=== PATIENT | female | born 1980 | race Caucasian/White ===

== ENCOUNTER → 2020-02-20 11:18 | Outpatient (BNVA) | payer MEDICAID, SELFPAY | PROVIDERS: Family Provider Family Medicine; Visit Provider Obstetrics & Gynecology | DX: N93.9 Abnormal uterine and vaginal bleeding, unspecified (principal) | CPT/HCPCS: 84146; 84443; 84703; 85025 ==

== ENCOUNTER → 2020-02-27 15:54 | Outpatient (BNVA) | payer MEDICAID, SELFPAY | PROVIDERS: Family Provider Family Medicine; Visit Provider Obstetrics & Gynecology | DX: Z01.419 Encounter for gynecological examination (general) (routine) without abnormal findings (principal) | CPT/HCPCS: 88175 ==

== ENCOUNTER → 2020-03-10 08:50 | Outpatient (BNVA) | payer MEDICAID, SELFPAY | PROVIDERS: Family Provider Family Medicine; Visit Provider Obstetrics & Gynecology | DX: E22.1 Hyperprolactinemia (principal); N93.9 Abnormal uterine and vaginal bleeding, unspecified | CPT/HCPCS: 76830; 84146 ==

== ENCOUNTER 2020-03-25 09:57 | Outpatient (CLI) | payer MEDICAID, SELFPAY ==
--- NOTE | 2020-03-25 10:30 | CT_ITS ---
WS: [id number] CT HEAD WITH AND WITHOUT CONTRAST HISTORY: Prolactinemia TECHNIQUE: Noncontrast 2.5 mm axial images obtained from the vertex to the skull base. Additional el ging performed at 2.5 mm axial images status post IV contrast. Bone and soft tissue windows are revie wed. All CT scans at [facility] use at least one of these dose optimization techniques: a utomated exposure control; mA and/or kV adjustment per patient size (includes targeted exams where do se is matched to clinical indication); or iterative reconstruction. CONTRAST: Omnipaque 300; 95 mL IV. DLP: 1851.82 mGycm COMPARISON: None available. No acute intracranial hemorrhage, edema or midline shift. No enhancing mass or vascular malformations identified. No fullness or abnormal enhancement in the re gion of the pituitary gland. Dural venous sinuses are normally enhancing. Visualized [place] is unremarkable. Paranasal sinuses as visualized: Clear. Mastoid air cells: Clear. Calvarium and scalp: Intact. CT/CT head wo/w con [id number] IMPRESSION: 1. Negative CT head with and without contrast. 2. No abnormality noted in the region of the sella turcica. CT evaluation is i nadequate to exclude small pituitary adenomas. For additional evaluation consid er MRI pituitary gland with contrast.
[2020-03-25] MEDS: iohexol 300 mg/mL 100 mL Btl IV (10:45)
== END 2020-03-25 09:58 | disposition home or self-care (01) ==
LOC: RADWPI 10:02
PROVIDERS: Family Provider Family Medicine; Visit Provider Obstetrics & Gynecology
DX: E22.1 Hyperprolactinemia (principal)
CPT/HCPCS: 70470; Q9967

== ENCOUNTER 2020-05-16 18:41 | Emergency (ER) | payer MEDICAID, SELFPAY ==
[2020-05-16 19:12] VITALS: BP 138/95; PULSE 120; RESP 18; TEMP 37; O2SAT 99; BMI 25.6
--- NOTE | 2020-05-16 19:23 | XRR_ITS ---
PROCEDURE INFORMATION: Exam: XR Chest, 1 View Exam date and time: 05/16/2020 8:07 PM Age: 39 years old Clinical indication: Cough; Additional info: Cough x 4 days TECHNIQUE: Imaging protocol: XR of the chest Views: Frontal portable upright view of the chest. COMPARISON: CR Chest 1 [place] [id number] 03/11/2019 12:49 PM FINDINGS: Lungs: The lungs are clear bilaterally. The pulmonary vasculature is normal. Pleural space: No pleural effusion. No pneumothorax. Heart/Mediastinum: The heart is normal in size and contour. Mediastinum: Stable. Bones/joints: Stable. Soft tissues: Bilateral metallic nipple ornaments. XR/XR chest 1V portable [id number] IMPRESSION: No acute cardiopulmonary abnormality identified.
--- NOTE | 2020-05-16 19:26 | ED_ITS ---
HPI - Chest Pain General: Chief Complaint: Chest Pain Stated Complaint: covid symptoms Time Seen by Provider: 05/16/20 19:23 History of Present Illness: HPI narrative: Patient states that she has pain with deep breath been gone for couple 3 days she has had a fever she has had EKG and test done down at [facility]. Had a recent echocardiogram erythema is fine. Patient still thinks she might have exposure to coal wood having parties in her house and and going to restaurants. Says she is had a sore throat here also lately denies any loss of sense of smell or taste. Does not complain about muscle aches. Does have a cough MD complaint: other (Cough and pain with deep breath) Onset (ago): day(s) Timing of current episode: episodic Prior episodes: Yes Associated symptoms: Reports fever(s); Deny abdominal pain, dyspnea, nausea or vomiting Review of Systems Const: Reports: fever(s); Denies: chills or body aches Eyes: Denies: change in vision or blurry vision ENMT: Reports: throat pain; Denies: nasal congestion Card: Denies: chest pain or dyspnea on exertion Resp: Reports: non-productive cough and pain on inspiration; Denies: dyspnea or productive cough GI: Denies: abdominal pain, nausea or vomiting Musc: Denies: extremity pain Skin/Breast: Denies: rash Neuro: Denies: headache(s) Psych: Denies: anxiety or depression Alfonso/Lymph: Denies: easy bruising PFSH ED PFSH: Medical History (Updated 03/25/20 @ 15:41 by Fish Jenkins MD) Abnormal uterine bleeding (AUB) Family History Mother Thyroid condition Breast cancer Grandmother Ovarian cancer maternal Breast cancer maternal Father Heart disease Denies family history of Diabetes Clotting disorder Hyperlipidemia Anesthesia complication Bleeding disorder Hypertension Stroke Social History (Updated 03/25/20 @ 15:23 by Ashwini Franco RN) Smoking and tobacco status: never smoked Alcohol intake: current Alcohol intake frequency: holidays/special occasions only Alcohol type: beer Physical Exam Const: COMMON NORMALS: no acute distress, average body habitus and patient oriented x3 HENMT: COMMON NORMALS: normocephalic HEAD & SCALP: normal to inspection and normocephalic FACE & SINUS: normal facial exam THROAT: posterior oropharynx normal Eye: COMMON NORMALS: conjunctivae normal GENERAL EYE: appearance normal, both eyes and all related structures CONJUNCTIVA: Yes conjunctivae normal Neck/C-Spine: COMMON NORMALS: no JVD Chest: COMMONS NORMALS: normal inspection of the chest Resp: COMMON NORMALS: normal respiratory effort Cardio: COMMON NORMALS: no JVD and regular rhythm RATE: tachycardic RHYTHM: regular rhythm GI: COMMON NORMALS: Normal to inspection, nondistended, normoactive bowel sounds present Extremity: COMMON NORMALS: normal to inspection and full ROM Neuro: COMMON NORMALS: patient oriented x3 Course Vital Signs: Vital signs: Vital Signs Temperature 98.6 F 05/16/20 19:12 Pulse Rate 120 H 05/16/20 19:12 Respiratory Rate 18 05/16/20 19:12 Blood Pressure 138/95 05/16/20 19:12 Pulse Oximetry 99 05/16/20 19:12 Discharge Plan Discharge Prescriptions: No Action medroxyprogesterone [Depo-Provera] 150 mg/mL suspension IM .every 3 months RF: 0 tramadol 50 mg tablet 50 mg PO .Q4-6 hours PRNRF: 0 alprazolam [Xanax] 1 mg tablet 1 mg PO TID PRNRF: 0 multivitamin Tablet 1 tab PO DAILY RF: 0 cholecalciferol (vitamin D3) PO DAILY RF: 0 epinephrine 0.3 mg/0.3 mL auto-injector 0.3 mg IM Q10M PRNRF: 0 amoxicillin 500 mg capsule 500 mg PO QID RF: 0 Coding Level of Care Code ED Labeling Associate for Chg Fwd
[2020-05-16] MEDS: predniSONE 20 mg Tablet 40 MG PO (20:47)
[2020-05-16] MEDS: albuterol 8 gm MDI 2 PUFF INHALATION (20:59)
[2020-05-16 21:00] VITALS: PULSE 71; RESP 18; O2SAT 97
[2020-05-16 21:37] VITALS: BP 128/90; PULSE 114; RESP 20; O2SAT 99
--- NOTE | 2020-05-16 21:43 | PC.NURSE ---
I agree with the assessment.
[2020-05-19 08:01] LABS: Quest SARS-CoV-2 RNA NOT DETECTED (NOT DETECTED)
--- NOTE | 2020-05-19 09:33 | DCPLANNER ---
PT CALLED ASKING FOR TEST RESULTS INFORMED OF NEGATIVE TEST RESULT
== END 2020-05-16 21:43 | disposition home or self-care (01) ==
LOC: ER 20:27
PROVIDERS: Emergency Provider Nurse Practitioner Family; PCP Family Medicine
DX: R07.1 Chest pain on breathing (principal)
CPT/HCPCS: 12345; 71045; 87635; 94640; 99281; 99283; J3535; J7512

== ENCOUNTER → 2020-09-24 15:35 | Outpatient (BNVA) | payer MEDICAID, SELFPAY | PROVIDERS: PCP Family Medicine; Visit Provider Nurse Practitioner | DX: M79.632 Pain in left forearm (principal) | CPT/HCPCS: 73090 ==

== ENCOUNTER 2022-03-16 19:19 | Emergency (ER) | payer BC, MEDICAID, SELFPAY ==
[2022-03-16 19:34] VITALS: BP 156/99; PULSE 78; RESP 18; TEMP 36.8; O2SAT 98; BMI 26.5
--- NOTE | 2022-03-16 20:35 | W.ED.WOUNDLC ---
HPI - Wound/Laceration General: Chief Complaint: Wound/Laceration Stated Complaint: L hand lac Time Seen by Provider: 03/16/22 20:35 History of Present Illness: 41-year-old female comes in today with injury to the left palm. Patient was using a razor blade to scrape a sticker off a windshield when it slipped causing her to slice her left palm. Patient believes her tetanus shot is up-to-date. Patient has a laceration to the thenar area of the left palm. Normal tendon function is noted. Review of Systems General: Reports: 10 or more systems reviewed and unremarkable except in HPI and below Card: Denies: chest pain Resp: Denies: dyspnea Musc: Reports: extremity pain Skin/Breast: Reports: new lesions PFSH ED PFSH: Medical History (Updated 03/16/22 @ 21:19 by JAZIEL Smith) Abnormal uterine bleeding (AUB) Anxiety Surgical History (Updated 03/16/21 @ 10:45 by Celsa Montana MD) History of salpingectomy Laparoscopic left salpingectomy-08/14/2019-per Dr. Jenkins at [facility] Previous back surgery 11/01/2006- excision of lipoma of left sacral area dx: lipoma of left sacral area. [place] Bright [place] [facility] [place] Family History Mother Thyroid condition Breast cancer FH: CABG (coronary artery bypass surgery) Grandmother Ovarian cancer maternal Breast cancer maternal Father Heart disease FH: CABG (coronary artery bypass surgery) Denies family history of Diabetes Clotting disorder Hyperlipidemia Anesthesia complication Bleeding disorder Hypertension Stroke Social History Smoking and tobacco status: never smoked Alcohol intake: current Alcohol intake frequency: holidays/special occasions only Alcohol type: beer Physical Exam Const: COMMON NORMALS: alert HENMT: COMMON NORMALS: atraumatic HEAD & SCALP: atraumatic Neck/C-Spine: COMMON NORMALS: full ROM Resp: COMMON NORMALS: normal respiratory effort Cardio: COMMON NORMALS: regular rate RATE: regular rate Extremity: LEFT UPPER EXTREMITY: Yes hand & digits (3 cm laceration to the thenar aspect of the left hand) Left hand and digits: Yes inspection, Yes palpation, Yes ROM and Yes tendon exam (Normal range of motion normal tendon function) Neuro: SENSORIUM/ORIENTATION: Yes alert Skin: TRAUMA: laceration (3 cm laceration left palmar hand) linear Procedures Laceration Laceration 1: Site: hand Side (If applicable): left Size (cm): 3 Description: linear Depth: simple, single layer Local Anesthetic: lidocaine 1% Amount of anesthesia used (mL): 4 Pre-repair: wound explored, irrigated extensively and deep structures intact Skin layer closed with: nylon Size (cm): 5-0 Number of sutures: 5 Technique: horizontal mattress Course Vital Signs: Vital signs: Vital Signs Temperature 98.2 F 03/16/22 19:34 Pulse Rate 78 03/16/22 19:34 Respiratory Rate 18 03/16/22 19:34 Blood Pressure 156/99 03/16/22 19:34 Pulse Oximetry 98 03/16/22 19:34 MDM - Wound/Laceration Medical Decision Making 41-year-old female comes in today for injury to the left palmar hand. On exam patient has a linear laceration approximately 3 cm to the thenar area of the left hand palm hand. Tendon function and range of motion is normal. Differential diagnosis includes not limited to fracture, laceration, foreign body. No foreign body or fracture was noted to the laceration area. Wound was cleaned and approximated with sutures. Patient tolerated well. Discharge Plan Discharge Patient Disposition: Home Clinical Impression: Laceration of hand, left Qualifiers: Encounter type: initial encounter Foreign body presence: without foreign body Qualified Code(s): S61.412A - Laceration without foreign body of left hand, initial encounter Condition: Stable Prescriptions: No Action medroxyprogesterone [Depo-Provera] 150 mg/mL suspension IM .every 3 months 0RF alprazolam [Xanax] 1 mg tablet 1 mg PO TID PRN0RF multivitamin Tablet 1 tab PO DAILY 0RF epinephrine 0.3 mg/0.3 mL auto-injector 0.3 mg IM Q10M PRN0RF Rx Instructions: for 2 doses methocarbamol 500 mg tablet 500 mg PO TID 0RF budesonide-formoterol [Symbicort] 160-4.5 mcg/actuation HFA aerosol inhaler 2 puff inhalation BID 0RF lactobacillus combination no.9 [Adult 50 Plus Probiotic] PO 0RF metoprolol succinate 100 mg tablet extended release 24 hr 100 mg PO DAILY 0RF ProAir HFA 90 mcg/actuation HFA aerosol inhaler 2 inh INHALATION Q6H PRN (Reason: shortness of breath or wheezing) Qty: 8.5 0RF Discharge Orders: Discharge ED (Routine); Ordered 03/16/22 Ordered By: Christiano Collier Referrals: Valentine Bautista DO [Primary Care Provider] - Discharge Diet: Usual diet Discharge Activity: Limit activity as instructed Patient Instructions: Care For Your Stitches (ED) Activity Restrictions/Additional Instructions: Keep wound clean and dry. Is important keep the wound as dry as possible for the next 48 hours. After that she can wash the wound gently with mild soap and water but do not submerge underwater for long periods of time. Thoroughly dry the wound and try to keep it as dry and clean as possible until the sutures come out. Sutures need to come out in 7 to 10 days. Follow-up with primary care or return to the ER as needed. Coding Level of Care Code ED Lieutenant Colonel for Fanny Loya
--- NOTE | 2022-03-25 11:02 | PC.NURSE ---
removal of 5 stitches
== END 2022-03-16 21:26 | disposition home or self-care (01) ==
PROVIDERS: Emergency Provider Nurse Practitioner Family; PCP Family Medicine
DX: S61.412A Laceration without foreign body of left hand, initial encounter (principal); W26.0XXA Contact with knife, initial encounter
CPT/HCPCS: 12002; 99283